=== PATIENT | female | born 1955 | race Caucasian/White ===

== ENCOUNTER → 2016-09-22 | Outpatient (CLI) | payer OTHER ==
[~2016-09-22] MED LIST: ASPIRIN 81M81 MG/TA2 PO; ASPIRIN E.C. 8181 MG PO; FISH OIL1000 MG PO; GLUCOSAMINE & C1 TA1 PO; GLUCOSAMINE CHO1 CAP PO; LORTAB 5/500 501 TAB PO; LOTENSIN; LOTENSIN HCT 201 TAB PO; MULTIPLE VITAMI1 CAP PO; PREMARIN .3MG0.3 MG PO; PREMARIN0.625 MG PO; VERAPAMIL; VERAPAMIL240 MG/TAB PO; VITAMIN B121000 MC2 SL; ZOCOR; ZOCOR 40MG40 MG PO
== END ==
LOC: MC.RAD 08:00
DX: Z12.31 Encounter for screening mammogram for malignant neoplasm of breast (principal)

== ENCOUNTER → 2017-10-10 | Outpatient (CLI) | payer OTHER | LOC: MC.RAD 07:42 | DX: Z12.31 Encounter for screening mammogram for malignant neoplasm of breast (principal); R22.31 Localized swelling, mass and lump, right upper limb ==

== ENCOUNTER → 2017-10-12 | Outpatient (CLI) | payer OTHER | LOC: MC.RAD 07:51 | DX: R22.9 Localized swelling, mass and lump, unspecified (principal); N63.10 Unspecified lump in the right breast, unspecified quadrant ==

== ENCOUNTER → 2017-10-17 | Outpatient (CLI) | payer OTHER | LOC: MC.RAD 09:18 | DX: R22.2 Localized swelling, mass and lump, trunk (principal) | CPT/HCPCS: 25610 ==

== ENCOUNTER 2019-01-05 10:02 | Emergency (ER) | payer MEDICARE, BC ==
[~2019-01-05] VITALS: Ht 162.6 cm; Wt 90.9 kg
[2019-01-05 10:12] VITALS: BP 141/65; TEMP 99
[2019-01-05] MEDS ORDERED: PEPCID 20MG TAB20 MG PO (10:44)
[2019-01-05] MEDS ORDERED: PREDNISONE20 MG PO (10:44)
[2019-01-05 12:28] VITALS: PULSE 69
== END 2019-01-05 12:28 | disposition home or self-care (01) ==
LOC: COL.ER 10:02
DX: T78.3XXA Angioneurotic edema, initial encounter (principal); Z85.3 Personal history of malignant neoplasm of breast; Z79.82 Long term (current) use of aspirin
CPT/HCPCS: J7512

== ENCOUNTER 2019-03-27 22:02 | Emergency (ER) | payer MEDICARE, BC ==
[~2019-03-27] VITALS: Ht 162.6 cm; Wt 86.8 kg
[~2019-03-27 22:02] MED LIST changes: +PEPCID 20MG TAB20 MG PO; +PREDNISONE20 MG PO
[2019-03-27 22:13] VITALS: TEMP 97.3
[2019-03-27 22:33] LABS: BASO % 0.5 % (0.0-2.0); EOS # 0.1 (0.0-0.7); EOS % 1.4 % (0-4.0); GRAN # 5.5 (1.4-6.5); GRAN % 62.2 % (42.2-75.2); HEMATOCRIT 41.1 % (37.0-47.0); HEMOGLOBIN 14.2 g/dl (12.5-16.0); LYMPH # 2.3 (1.2-3.4); LYMPH % 26.3 % (20.0-51.0); MEAN CELL VOLUME 89 fl (80.0-100.0); MEAN CORPUSCULAR HEMOGLOBIN 31 pg (27.0-31.0); MEAN CORPUSCULAR HGB CONC 35 g/dl (33.0-37.0); MEAN PLATELET VOLUME 10.3 fl (7.4-10.4); MONO # 0.8 (0.1-0.6); MONO % 8.5 % (1.7-9.3); PLATELET COUNT 233 K/mm3 (130-400); RED BLOOD COUNT 4.63 M/mm3 (4.10-5.30); REDCELL DISTRIBUTION WIDTH-CV 16.1 % (11.5-14.5)
[2019-03-27 22:38] LABS: INR 0.9 (0.8-3.0); PROTHROMBIN TIME 10.9 SECONDS (9.7-12.8)
[2019-03-27 22:41] LABS: PARTIAL THROMBOPLASTIN TIME 27.9 SECONDS (26.0-37.0)
[2019-03-27 22:44] LABS: ALANINE AMINOTRANSFERASE < 6 U/L (9-52); ALBUMIN 4.7 gm/dL (3.5-5.0); ALKALINE PHOSPHATASE 95 U/L (50-136); ANION GAP 11 mmol/L (7-16); AST,SGOT 28 U/L (15-37); BILIRUBIN,TOTAL 0.6 mg/dL (0.0-1.0); BLOOD UREA NITROGEN 19 mg/dL (7-17); CALCIUM 10.8 mg/dL (8.4-10.2); CARBON DIOXIDE 29 mmol/L (22-30); CHLORIDE 99 mmol/L (98-107); CREATININE, serum 0.67 (0.52-1.25); GLUCOSE 133 mg/dL (74-106); POTASSIUM 3.7 mmol/L (3.4-5.0); SODIUM 138 mmol/L (137-145); TOTAL PROTEIN 8.2 gm/dL (6.4-8.2)
[2019-03-27 22:55] LABS: TROPONIN-I < 0.012 ng/mL (0.000-0.035)
[2019-03-27 23:32] VITALS: BP 139/75; PULSE 89
== END 2019-03-27 23:32 | disposition home or self-care (01) ==
LOC: COL.ER 22:02
PROVIDERS: Family Medicine
DX: R00.0 Tachycardia, unspecified (principal); C50.919 Malignant neoplasm of unspecified site of unspecified female breast; Z79.82 Long term (current) use of aspirin
CPT/HCPCS: J7030; Q9967

== ENCOUNTER → 2023-12-25 | Outpatient (CLI) | payer MEDICARE, BC | LOC: DIA.ED 08:51 | DX: E11.9 Type 2 diabetes mellitus without complications (principal); Z79.84 Long term (current) use of oral hypoglycemic drugs; E78.5 Hyperlipidemia, unspecified; I10 Essential (primary) hypertension | CPT/HCPCS: G0108 ==

== ENCOUNTER 2024-02-15 05:54 | Day surgery (SDC) | payer MEDICARE, BC ==
[~2024-02-15] VITALS: Ht 162.6 cm; Wt 80.7 kg
[~2024-02-15 05:54] MED LIST changes: +LR 1,000 ML IV SCH; +Ondansetron 4 MG/2 ML VIAL IV PRN; +VITAMIN B12 1541 TAB PO; -VITAMIN B121000 MC2 SL
[2024-02-15] MEDS ORDERED: Lidocaine PF 2% (20 MG/ML) 5 ML VIAL ONE (07:31)
[2024-02-15] MEDS ORDERED: Glycopyrrolate 0.2 MG/ML 1 ML VIAL ONE (07:37)
[2024-02-15 08:15] VITALS: BP 124/67; PULSE 52; TEMP 97.3
[2024-02-15] MEDS ORDERED: FOSAMAX 70MG TA70 MG PO (08:23)
[2024-02-15 08:30] VITALS: BP 153/70; PULSE 47
[2024-02-15] MEDS ORDERED: SYNTHROID0.05 MG/TA PO (08:34)
[2024-02-15] MEDS ORDERED: ARIMIDEX1 MG PO (08:44)
[2024-02-15] MEDS ORDERED: LOPID 600M600 MG/TAB PO (08:44)
[2024-02-15] MEDS ORDERED: NEURONTIN600 MG/TAB PO (08:44)
[2024-02-15 08:45] VITALS: BP 166/72; PULSE 50
[2024-02-15] MEDS ORDERED: CATAPRES 0.1MG0.1 MG PO (08:45)
[2024-02-15] MEDS ORDERED: CYMBALTA 60MG60 MG PO (08:46)
[2024-02-15] MEDS ORDERED: CARDIZEM CD 12120 MG PO (08:46)
[2024-02-15] MEDS ORDERED: FARXIGA10 PO (08:47)
[2024-02-15] MEDS ORDERED: ALDACTONE50 MG PO (08:47)
[2024-02-15] MEDS ORDERED: VITAMIN D31000 IU PO (08:47)
[2024-02-15] MEDS ORDERED: TYLENOL 500MG500 MG PO ×2 (08:48→08:49)
[2024-02-15] MEDS ORDERED: LIPITOR 10MG10 MG PO (08:48)
[2024-02-15] MEDS ORDERED: TUMS500 MG (08:49)
--- NOTE | 2024-02-15 08:50 | NUR ---
0815- Patient returns from procedure on cart, ambulates to recliner with assist x2. VSS. at bedside. Denies complaints. Talib crackers and water given per request. 0830- Dr. Nava in room to speak with patient. 0840- Dischrage instructions and education reviewed with patient and . Questions answered. 0850- Pt getting dressed at this time.
[2024-02-15 09:06] VITALS: BP 148/80; PULSE 91; TEMP 97.3
--- NOTE | 2024-02-15 09:14 | NUR ---
0855- IV site removed. Denies complaints, ready to discharge. 0900- To husbands truck via w/c, accompanied by this nurse. Belongings sent with patient.
== END 2024-02-15 09:00 | disposition home or self-care (01) ==
LOC: SDCO 05:54
DX: Z12.11 Encounter for screening for malignant neoplasm of colon (principal); K57.30 Diverticulosis of large intestine without perforation or abscess without bleeding; I12.9 Hypertensive chronic kidney disease with stage 1 through stage 4 chronic kidney disease, or unspecified chronic kidney disease; N18.31 Chronic kidney disease, stage 3a; E11.22 Type 2 diabetes mellitus with diabetic chronic kidney disease; E66.9 Obesity, unspecified; Z85.3 Personal history of malignant neoplasm of breast; Z79.899 Other long term (current) drug therapy; Z68.31 Body mass index [BMI] 31.0-31.9, adult
CPT/HCPCS: J2704; J7120

== ENCOUNTER 2024-02-22 08:44 | Outpatient (RCR) | payer MEDICARE, BC ==
[~2024-02-22 08:44] MED LIST changes: +ALDACTONE50 MG PO; +ARIMIDEX1 MG PO; +CARDIZEM CD 12120 MG PO; +CATAPRES 0.1MG0.1 MG PO; +CYMBALTA 60MG60 MG PO; +FARXIGA10 PO; +FOSAMAX 70MG TA70 MG PO; +LIPITOR 10MG10 MG PO; +LOPID 600M600 MG/TAB PO; -LR 1,000 ML IV SCH; +NEURONTIN600 MG/TAB PO; -Ondansetron 4 MG/2 ML VIAL IV PRN; +SYNTHROID0.05 MG/TA PO; +TUMS500 MG; +TYLENOL 500MG500 MG PO; +VITAMIN D31000 IU PO
== END 2024-03-14 | disposition home or self-care (01) ==
LOC: WSPT
DX: I89.0 Lymphedema, not elsewhere classified (principal)